=== PATIENT | male | born 1965 | race Caucasian/White ===

== ENCOUNTER 2021-03-06 10:31 | Day surgery (SDC) | payer BC ==
[~2021-03-06] VITALS: Ht 182.9 cm; Wt 121.1 kg
[~2021-03-06 10:31] MED LIST: ADVIL200 MG PO; ASPIRIN E.C. 8181 MG PO; CARAFATE 1GM1 G PO; CLARITIN 1010 MG/TAB PO; NITROSTAT0.4 MG/TAB SL; PROTONIX 40MG T40 MG PO; TOPROL XL 25MG25 MG PO; VITAMIN C PUR1000 MG PO; XANAX 0.5MG0.5 MG PO
[2021-03-06 11:50] VITALS: BP 148/87; PULSE 70; TEMP 98.4
--- NOTE | 2021-03-06 11:58 | NUR ---
Pt states that Dr. Slade wants him to have x ray. Called Dr. Slade's nurse. ANTONIO should have been on orders, new orders being faxed over.
[2021-03-06] MEDS ORDERED: TOPROL XL 50MG50 MG PO (12:21)
[2021-03-06] MEDS ORDERED: FLOMAX 0.40.4 MG/CAP PO (12:21)
[2021-03-06] MEDS ORDERED: EMERGEN-C 1,01000 MG PO (12:23)
[2021-03-06] MEDS ORDERED: ONE-A-DAY MEN'S1 TAB PO (12:23)
[2021-03-06] MEDS ORDERED: ADVIL200 MG PO (12:24)
[2021-03-06] MEDS ORDERED: PROTONIX 40MG T40 MG PO (12:25)
[2021-03-06] MEDS ORDERED: CLARITIN 1010 MG/TAB PO (12:25)
[2021-03-06] MEDS ORDERED: ASPIRIN 81M81 MG/TA2 PO (12:26)
[2021-03-06] MEDS ORDERED: CARAFATE 1GM1 G PO (12:26)
[2021-03-06 15:10] VITALS: BP 138/97; PULSE 50; TEMP 97.2
[2021-03-06 15:25] VITALS: BP 128/68; PULSE 52
[2021-03-06 15:40] VITALS: BP 144/90; PULSE 51
[2021-03-06 15:53] VITALS: BP 129/81; PULSE 610; TEMP 97.4
--- NOTE | 2021-03-06 16:00 | NUR ---
1510- Pt returns from PACU via cart [place] [address] . Monitors on and alarms set. Call light within reach. Report received from ARMANI Cheng. Pt alert and oriented. Pt requests water and muffin. Pt denies any pain or nausea. 1525- Pt taking food and drink well. No complications noted. 1540- Discharge instructions given to pt. All questions answered to pt satisfaction. Handed to pt education material and discharge information. 1600- Pt transferred out of the hospital via wheelchair, to private vehicle driven by father.
== END 2021-03-06 16:00 | disposition home or self-care (01) ==
LOC: SDCO 10:31
DX: N20.1 Calculus of ureter (principal); I10 Essential (primary) hypertension; J30.9 Allergic rhinitis, unspecified; K21.9 Gastro-esophageal reflux disease without esophagitis; D64.9 Anemia, unspecified; Z79.899 Other long term (current) drug therapy; Z79.82 Long term (current) use of aspirin; Z87.891 Personal history of nicotine dependence
CPT/HCPCS: C1769; C2617; J0690; J1885; J2405; J2704; J3010; J7120; Q9967